=== PATIENT | female | born 1985 | race Caucasian/White ===

== ENCOUNTER 2025-03-08 16:41 | Emergency (ER) | payer OTHER ==
[~2025-03-08] VITALS: Ht 157.4 cm; Wt 67.1 kg
[2025-03-08] MEDS ORDERED: Acetaminophen/Oxycodone 5 MG/325 MG TABLET PO ONE (19:15)
[2025-03-08 19:32] LABS: BILIRUBIN Negative (Negative); BLOOD 3+ (Negative); CLARITY Clear (Clear); COLOR Yellow (Yellow); KETONE Trace (Negative); LEUKO ESTERASE Trace (Negative); NITRITE Negative (Negative); PH 5.5 (4.5-8.0); SPECIFIC GRAVITY 1.020 (1.001-1.030); UROBILINOGEN 0.2 E.U./dl (0.0-1.0)
[2025-03-08 19:40] LABS: BACTERIA 1+; RBC TNTC rbc/hpf (0-2)
[2025-03-08 19:47] LABS: BASO # 0.0 10*3/uL (0.0-0.1); BASO % 0.3 % (0.0-1.0); EOS # 0.1 10*3/uL (0.0-0.4); EOS % 0.7 % (1.0-4.0); MEAN CELL VOLUME 91.5 fl (81.0-99.0); MEAN CORPUSCULAR HGB 31.0 pg (27.0-31.0); MEAN PLATELET VOLUME 9.6 fl (9.6-12.3); MONO # 0.7 10*3/uL (0.1-1.0); MONO % 5.1 % (3.0-9.0); NEUT # 8.8 10*3/uL (2.3-7.9); NEUT % 69.5 % (47.0-73.0); NUCLEATED RED BLOOD CELL 0.0 % (0.0-0.0); NUCLEATED RED BLOOD CELL 0.0 10*3/uL (0.0-0.0); PLATELET COUNT AUTOMATED 273 10*3/uL (130-400); RED CELL DISTRI WIDTH 11.9 % (0-14.5)
[2025-03-08 20:14] LABS: BUN 13 mg/dl (9-23)
[2025-03-08] MEDS ORDERED: HYDROmorphONE Hydrochloride 0.5 MG/0.5 ML SYRINGE IM ONE (21:05)
[2025-03-08] MEDS ORDERED: HYDROCODONE-AC1 EAC1 PO (22:15)
== END 2025-03-08 22:20 | disposition home or self-care (01) ==
LOC: ED 16:41
PROVIDERS: Nurse Practitioner Family
DX: R10.32 Left lower quadrant pain (principal); R82.71 Bacteriuria; D72.829 Elevated white blood cell count, unspecified; R11.0 Nausea; Z88.1 Allergy status to other antibiotic agents; Z88.8 Allergy status to other drugs, medicaments and biological substances